=== PATIENT | female | born 1995 | race African-American/Black ===

== ENCOUNTER 2023-08-13 09:02 | Emergency (ER) | payer MEDICAID ==
[~2023-08-13] VITALS: Ht 172.7 cm; Wt 74.6 kg
[2023-08-13 09:06] VITALS: BP 135/99; PULSE 87; RESP 16; TEMP 98; O2SAT 97
[2023-08-13] MEDS ORDERED: dexamethasone sod phosphate 10mg/ml inj PO STA (10:56)
[2023-08-13] MEDS ORDERED: ketorolac trometh inj. 60 MG/2 ML VIAL IM ONE (11:00)
[2023-08-13] MEDS ORDERED: HYDROcodone/acetaminophen 5mg/325mg tablet PO ONE (11:00)
[2023-08-13] MEDS ORDERED: cyclobenzaprine 10mg tablet PO ONE (11:00)
[2023-08-13] MEDS ORDERED: PRED10TA23 PO (11:04)
[2023-08-13] MEDS ORDERED: ERYT1OIN6 EACHEYE (11:04)
== END 2023-08-13 11:17 | disposition home or self-care (01) ==
LOC: ER 09:03
DX: H01.9 Unspecified inflammation of eyelid (principal)
CPT/HCPCS: 99283

== ENCOUNTER 2024-10-03 09:30 | Outpatient (CLI) | payer MEDICAID | END 2024-10-03 23:59 | disposition home or self-care (01) | LOC: RAD 09:30 | PROVIDERS: ATTEND Physician Assistant | DX: R56.9 Unspecified convulsions (principal) | CPT/HCPCS: 95816 ==